=== PATIENT | female | born 1965 | race Caucasian/White ===

== ENCOUNTER 2019-04-10 11:16 | Observation (INO) | payer SELFPAY ==
--- NOTE | 2019-04-10 11:31 | ER Document Report ---
ED Medical Screen (RME) - General Chief Complaint: Urinary Problem Stated Complaint: URINARY PROBLEM Time Seen by Provider: 04/10/19 11:26 Mode of Arrival: Ambulatory Information source: Patient Notes: 53-year-old female presented to ED for complaint of left flank pain with urgency frequency and pain. Not any blood that she has seen. She states she does have body aches all over. She is a diabetic on the side and and metformin. She states last time she had a problem with her sugar she felt like she had body aches all over and her lactic acid was elevated. She states she does not smoke drink or use any drugs. She states she does not have a primary doctor. She states she was on health care in [place] but when she moved to [place] that she does not longer has it. She states she has has high blood pressure diabetes fibromyalgia osteoarthritis coronary artery disease thoracic aortic aneurysm and depression. Has a small abscess type area to the right lower abdomen from previous Lovenox shots. She states this started in March and is getting progressively worse. I have greeted and performed a rapid initial assessment of this patient. A comprehensive ED assessment and evaluation of the patient, analysis of test results and completion of medical decision making process will be conducted by an additional ED providers. - Related Data Allergies/Adverse Reactions: levofloxacin [From Levaquin] Allergy (Intermediate, Verified 04/10/19 11:22) cardiac arrythmia sumatriptan [From Imitrex] Allergy (Intermediate, Verified 04/10/19 11:22) Tachycardia amitriptyline Adverse Reaction (Severe, Verified 04/10/19 11:22) Depression Physical Exam - Vital signs Vitals: Temp Pulse Resp BP Pulse Ox 97.8 F 61 16 133/83 H 95 04/10/19 11:21 04/10/19 11:21 04/10/19 11:21 04/10/19 11:21 04/10/19 11:21 Course - Vital Signs Vital signs: Temp Pulse Resp BP Pulse Ox 97.8 F 61 16 133/83 H 95 04/10/19 11:21 04/10/19 11:21 04/10/19 11:21 04/10/19 11:21 04/10/19 11:21
[2019-04-10 12:17] LABS: ABSOLUTE EOSINOPHILS # (AUTO) 0.7 10^3/uL (0.0-0.6); ABSOLUTE LYMPHOCYTES (AUTO) 1.8 10^3/uL (0.5-4.7); ABSOLUTE MONOCYTES (AUTO) 0.3 10^3/uL (0.1-1.4); ABSOLUTE NEUT (AUTO) 4.5 10^3/uL (1.7-8.2); BASOPHILS % (AUTO) 0.4 % (0-2); EOSINOPHILS % (AUTO) 9.7 % (0-6); HEMATOCRIT 40.4 % (36.0-47.0); HEMOGLOBIN 13.3 g/dL (12.0-15.5); LYMPHOCYTES % (AUTO) 25.1 % (13-45); MEAN CORPUSCULAR HEMOGLOBIN 28.2 pg (27.0-33.4); MEAN CORPUSCULAR VOLUME 86 fl (80-97); MONOCYTES % (AUTO) 4.1 % (3-13); PLATELET COUNT 182 10^3/uL (150-450); RED BLOOD COUNT 4.72 10^6/uL (3.72-5.28); RED CELL DISTRIBUTION WIDTH 14.7 % (11.5-14.0); SEGMENTED NEUTROPHILS % (AUTO) 60.7 % (42-78); TOTAL CELLS COUNTED % (AUTO) 100 %; WHITE BLOOD COUNT 7.3 10^3/uL (4.0-10.5)
[2019-04-10 12:18] LABS: VENOUS BLOOD BASE EXCESS -0.4 mmol/L; VENOUS BLOOD HCO3 27.6 mmol/L (20-32); VENOUS BLOOD PCO2 60.4 mmHg (35-63); VENOUS BLOOD PH 7.28 (7.30-7.42)
[2019-04-10 12:20] LABS: APPEARANCE,URINE CLEAR; BILIRUBIN,URINE NEGATIVE (NEGATIVE); COLOR,URINE YELLOW; GLUCOSE, URINE >=500 mg/dL (NEGATIVE); KETONES,URINE NEGATIVE (NEGATIVE); PROTEIN,URINE NEGATIVE (NEGATIVE); URINE SPECIFIC GRAVITY 1.025; UROBILINOGEN,URINE NEGATIVE mg/dL (<2.0)
[2019-04-10 12:36] LABS: ALBUMIN 4.1 g/dL (3.5-5.0); ALKALINE PHOSPHATASE 76 U/L (38-126); ANION GAP 12 (5-19); ASPARTATE AMINO TRANSFERASE 27 U/L (14-36); BILIRUBIN,DIRECT 0.1 mg/dL (0.0-0.4); BILIRUBIN,TOTAL 0.5 mg/dL (0.2-1.3); BLOOD UREA NITROGEN 22 mg/dL (7-20); CALCIUM 9.2 mg/dL (8.4-10.2); CARBON DIOXIDE 27 mmol/L (22-30); CHLORIDE 96 mmol/L (98-107)
[2019-04-10] MEDS ORDERED: NORMAL SALINE IV ONE (12:45)
--- NOTE | 2019-04-10 12:47 | ER Document Report ---
ED General - General Chief Complaint: Flank Pain Stated Complaint: URINARY PROBLEM Time Seen by Provider: 04/10/19 11:26 Mode of Arrival: Ambulatory TRAVEL OUTSIDE OF THE [place] IN LAST 30 DAYS: No - HPI Notes: 53-year-old female to the emergency department with complaints of bilateral flank pain with associated nausea, dysuria, urinary frequency that is been getting worse for the past week. She states that her left flank pain is worse than her right. She denies any hematuria. She denies any history of kidney stones. She does report that she has been nauseated but not vomiting. She denies any diarrhea. She states that she has had chills but no fevers. She states that she takes metformin and glipizide for her diabetes and has had a lot of difficulty controlling her sugar. She states that at one point she was on 2000 mg of metformin daily but she was taken off of that dose and reduced because she had a finding of lactic acidosis. She states that she feels overall poorly. She denies any chest pain or shortness of breath. She recently moved from [place] and does not have established primary care here. - Related Data Allergies/Adverse Reactions: levofloxacin [From Levaquin] Allergy (Intermediate, Verified 04/10/19 11:22) cardiac arrythmia sumatriptan [From Imitrex] Allergy (Intermediate, Verified 04/10/19 11:22) Tachycardia amitriptyline Adverse Reaction (Severe, Verified 04/10/19 11:22) Depression Home Medications: tramadol, cymbalta, metformin, furosemide, metoprolol succ, tr azadone, omeprazole, glipizide, Past Medical History - General Information source: Patient - Social History Smoking Status: Never Smoker Chew tobacco use (# tins/day): No Frequency of alcohol use: None Drug Abuse: None Family History: DM, Hypertension Patient has suicidal ideation: No Patient has homicidal ideation: No Endocrine Medical History: Reports: Hx Diabetes Mellitus Type 2 Past Surgical History: Reports: Hx Appendectomy, Hx Bowel Surgery - sigmond colon removal, Hx Cholecystectomy, Hx Hysterectomy, Hx Orthopedic Surgery Review of Systems - Review of Systems Constitutional: Chills, Malaise. denies: Fever EENT: No symptoms reported Cardiovascular: denies: Chest pain, Palpitations, Heart racing, Orthopnea, Dyspnea, Syncope, Lightheaded Respiratory: denies: Cough, Short of breath Gastrointestinal: Abdominal pain, Nausea. denies: Diarrhea, Vomiting Genitourinary: Dysuria, Frequency, Flank pain, Urgency. denies: Hematuria, Incontinence Female Genitourinary: No symptoms reported Musculoskeletal: No symptoms reported Skin: No symptoms reported Hematologic/Lymphatic: No symptoms reported Neurological/Psychological: No symptoms reported Physical Exam - Vital signs Vitals: Temp Pulse Resp BP Pulse Ox 97.8 F 61 16 133/83 H 95 04/10/19 11:21 04/10/19 11:21 04/10/19 11:21 04/10/19 11:21 04/10/19 11:21 Interpretation: Hypertensive - General General appearance: Appears well, Alert In distress: None - HEENT Head: Normocephalic, Atraumatic Eyes: Normal Pupils: PERRL - Respiratory Respiratory status: No respiratory distress Chest status: Nontender Breath sounds: Normal Chest palpation: Normal - Cardiovascular Rhythm: Regular Heart sounds: Normal auscultation Murmur: No - Abdominal Inspection: Normal, Obese Distension: No distension Bowel sounds: Normal Tenderness: Tender - There is tenderness to palpation to the epigastrium, right upper quadrant and bilateral flank. Negative McBurney's point, negative Sierra sign. patient is not guarding and has no peritoneal signs. Organomegaly: No organomegaly - Back Back: Normal, Nontender - Extremities General upper extremity: Normal inspection, Nontender, Normal color, Normal ROM, Normal temperature General lower extremity: Normal inspection, Nontender, Normal color, Normal ROM, Normal temperature, Normal weight bearing. No: Iman's sign - Neurological Neuro grossly intact: Yes Cognition: Normal Orientation: AAOx4 [place] Coma Scale Eye Opening: Spontaneous Rangel Coma Scale Verbal: Oriented [place]angel Coma Scale Motor: Obeys Commands [place] Coma Scale Total: 15 Speech: Normal Motor strength normal: LUE, RUE, LLE, RLE Sensory: Normal - Psychological Associated symptoms: Normal affect, Normal mood - Skin Skin Temperature: Warm Skin Moisture: Dry Skin Color: Normal Course - Re-evaluation Re-evalutation: Noted hyperglycemia without evidence for diabetic ketoacidosis however there is an acidosis on VBG. Noted lactic acidosis with lactic acid of 3.8. Patient bolus of fluid of 30cc/kg and will repeat lactic acid. We will also give insulin for her hyperglycemia. Repeat sugar was 200s. Repeat lactic acid despite adequate fluid bolus was still 4. Discussed patient with Dr. Jolly, ER attending. We agreed that patient should be admitted to the hospital. Suspect that the lactic acidosis is from her metformin. Spoke with Dr. Castillo hospitalist taking call for admission. He asked me to call his colleague Odalys Mata, [employer] for admission. Spoke with Odalys and she agrees with plan for admission. She will come down see the patient. We will place patient on the medical floor. Impression: Lactic acidosis likely secondary to drugs like her metformin. Patient is still taking 1000 mg of metformin daily despite a prior episode of lactic acidosis on metformin. She is hyperglycemic and that is been addressed s georgette arrival she agrees with plan for admission. - Vital Signs Vital signs: Temp Pulse Resp BP Pulse Ox 98.4 F 60 14 151/73 H 98 04/10/19 18:04 04/10/19 18:32 04/10/19 18:32 04/10/19 18:04 04/10/19 18:32 - Laboratory Result Diagrams: 04/10/19 11:53 04/10/19 11:53 Laboratory results interpreted by me: 04/10/19 04/10/19 04/10/19 11:40 11:53 11:53 RDW 14.7 H Eos % (Auto) 9.7 H Absolute Eos (auto) 0.7 H VBG pH Sodium Chloride BUN Glucose POC Glucose Lactic Acid 3.8 H Creatine Kinase Serum HCG, Qual Urine Glucose (UA) >=500 H Salicylates Acetaminophen 04/10/19 04/10/19 04/10/19 11:53 11:53 11:53 RDW Eos % (Auto) Absolute Eos (auto) VBG pH 7.28 L Sodium 134.8 L Chloride 96 L BUN 22 H Glucose 459 H* POC Glucose Lactic Acid Creatine Kinase Serum HCG, Qual POSITIVE H Urine Glucose (UA) Salicylates Acetaminophen 04/10/19 04/10/19 04/10/19 11:53 11:53 11:53 RDW Eos % (Auto) Absolute Eos (auto) VBG pH Sodium Chloride BUN Glucose POC Glucose Lactic Acid Creatine Kinase 20 L Serum HCG, Qual Urine Glucose (UA) Salicylates < 1.0 L Acetaminophen < 10 L 04/10/19 04/10/19 04/10/19 12:33 12:34 13:57 RDW Eos % (Auto) Absolute Eos (auto) VBG pH Sodium Chloride BUN Glucose POC Glucose 436 H* 399 H Lactic Acid 4.0 H Creatine Kinase Serum HCG, Qual Urine Glucose (UA) Salicylates Acetaminophen 04/10/19 15:15 RDW Eos % (Auto) Absolute Eos (auto) VBG pH Sodium Chloride BUN Glucose POC Glucose 287 H Lactic Acid Creatine Kinase Serum HCG, Qual Urine Glucose (UA) Salicylates Acetaminophen - Diagnostic Test Radiology reviewed: Image reviewed, Reports reviewed Discharge - Discharge Clinical Impression: Lactic acidosis Condition: Stable Disposition: ADMITTED INPATIENT Admitting Provider: Dr. Hernán Castillo Unit Admitted: Medical Floor
[2019-04-10 12:51] LABS: GLUCOSE 459 mg/dL (75-110)
[2019-04-10] MEDS ORDERED: INSULIN REG, HUMAN 100 UNIT/ML 3 ML VIAL (PYX) IV ONE ×2 (13:04→14:03)
[2019-04-10] MEDS ORDERED: ONDANSETRON HCL INJ/PF 4 MG/2 ML SDV IV ONE (13:14)
--- NOTE | 2019-04-10 13:55 | RADIOLOGY REPORT (SQ) ---
EXAM DESCRIPTION: CT ABD/PELVIS NO ORAL OR IV COMPLETED DATE/TIME: 04/10/2019 1:41 pm REASON FOR STUDY: flank pain, urinary frequency COMPARISON: None. TECHNIQUE: CT scan of the abdomen and pelvis performed without intravenous or oral contrast. Images reviewed with lung, soft tissue, and bone windows. Reconstructed coronal and sagittal MPR images revi ewed. All images stored on PACS. All CT scanners at this facility use dose modulation, iterative reconstruction, and/or weight based d osing when appropriate to reduce radiation dose to as low as reasonably achievable (ALARA). [facility]: Dose Right [facility]: CareDose [facility]: Dose Right [facility]: Teradose 4D [facility]: Hiddenbed RADIATION DOSE: CT Rad equipment meets quality standard of care and radiation dose reduction techniq ues were employed. CTDIvol: 8.2 mGy. DLP: 513 mGy-cm.mGy. LIMITATIONS: None. FINDINGS: LOWER CHEST: No significant findings. No nodules or infiltrates. NON-CONTRASTED LIVER, SPLEEN, ADRENALS: Evaluation limited by lack of IV contrast. No identified sign ificant masses. PANCREAS: No masses. No peripancreatic inflammatory changes. GALLBLADDER: Surgically absent. RIGHT KIDNEY AND URETER: No suspicious masses. Assessment limited by lack of IV contrast. No signif icant calcifications. No hydronephrosis or hydroureter. LEFT KIDNEY AND URETER: No suspicious masses. Assessment limited by lack of IV contrast. No signifi cant calcifications. No hydronephrosis or hydroureter. AORTA AND RETROPERITONEUM: No aneurysm. No retroperitoneal masses or adenopathy. BOWEL AND PERITONEAL CAVITY: No obvious masses or inflammatory changes. No free fluid. Evidence of p rior sigmoid colon resection. Moderate burden of stool in the colon. APPENDIX: Surgically absent. PELVIS, BLADDER, AND ABDOMINAL WALL:No abnormal masses. Status posthysterectomy. No free fluid. Rodrigue dder normal. BONES: No significant findings. OTHER: No other significant finding. IMPRESSION: 1. No acute noncontrast CT findings of the abdomen or pelvis to explain abdominal pain, flank pain, or urinary frequency. No evidence of urinary tract calculus or hydronephrosis. 2. Multiple postoperative findings as above. COMMENT: Quality ID # [id number]: Final reports with documentation of one or more dose reduction techniques (e.g., Automated exposure control, adjustment of the mA and/or kV according to patient size, use of iterative reconstruction technique) TECHNICAL DOCUMENTATION: JOB ID: [id number] [employer]- All Rights Reserved Reading location - IP/workstation name: [email or web address]
[2019-04-10 16:37] LABS: URINE AMPHETAMINES SCREEN NEGATIVE; URINE BARBITURATES SCREEN NEGATIVE; URINE BENZODIAZEPINES SCREEN NEGATIVE; URINE COCAINE SCREEN NEGATIVE; URINE MARIJUANA (THC) SCREEN NEGATIVE; URINE METHADONE SCREEN NEGATIVE; URINE PHENCYCLIDINE SCREEN NEGATIVE
[2019-04-10 17:16] LABS: PARTIAL THROMBOPLASTIN TIME 22.8 SEC (23.5-35.8); PROTHROMBIN TIME 13.2 SEC (11.4-15.4)
[2019-04-10 17:17] LABS: ARTERIAL BLOOD BASE EXCESS 1.7 mmol/L; ARTERIAL BLOOD H2CO3 1.39 mmol/L (1.05-1.35); ARTERIAL BLOOD HCO3 27.1 mmol/L (20-24); ARTERIAL BLOOD O2 SATURATION 95.7 % (94-98); ARTERIAL BLOOD PCO2 46.3 mmHg (35-45); ARTERIAL BLOOD PH 7.39 (7.35-7.45); ARTERIAL BLOOD PO2 80.5 mmHg (80-100); ARTERIAL BLOOD TOTAL CO2 28.6 mmol/L (21-25)
[2019-04-10 17:18] LABS: ARTERIAL BLOOD FIO2 ROOM AIR
[2019-04-10] MEDS ORDERED: MAG HYDROX/AL HYDROX/SIMETH SUSP 30 ML UDCUP PO PRN (18:28)
[2019-04-10] MEDS ORDERED: ACETAMINOPHEN 325 MG TABLET PO PRN (18:28)
[2019-04-10] MEDS ORDERED: ALBUTEROL SULFATE 0.083% NEB 2.5 MG/3 ML AMPUL NEB PRN (18:28)
[2019-04-10] MEDS ORDERED: ONDANSETRON HCL INJ/PF 4 MG/2 ML SDV IV PRN (18:28)
[2019-04-10] MEDS ORDERED: NORMAL SALINE 1000 ML 1,000 ML IV PRN (18:28)
[2019-04-10] MEDS ORDERED: PROMETHAZINE HCL INJ 25 MG/1 ML VIAL IV PRN (18:28)
[2019-04-10] MEDS ORDERED: ZOLPIDEM TARTRATE 5 MG TABLET PO PRN (18:28)
[2019-04-10] MEDS ORDERED: DEXTROSE 50%-WATER SYRINGE 25 GM/50 ML DOSE IV PRN (18:30)
[2019-04-10] MEDS ORDERED: DEXTROSE 50%-WATER SYRINGE 12.5 GM/25 ML DOSE IV PRN (18:30)
[2019-04-10] MEDS ORDERED: DEXTROSE 40% GEL 15 GM TUBE X 2 PO PRN (18:30)
[2019-04-10] MEDS ORDERED: GLUCAGON,HUMAN RECOMB 1 MG INJ IM PRN (18:30)
[2019-04-10] MEDS ORDERED: DEXTROSE 40% GEL 15 GM TUBE PO PRN (18:30)
[2019-04-10 18:52] LABS: CREATINE KINASE 20 U/L (30-135)
[2019-04-10] MEDS ORDERED: HYDRALAZINE HCL INJ/PF 20 MG/1 ML SDV IV PRN (18:52)
--- NOTE | 2019-04-10 19:06 | PDOC H&P ---
History of Present Illness Admission Date/PCP: 04/10/19 16:32 Patient complains of: urinary frequency History of Present Illness: ELDER BRYAN is a 53 year old female who recently moved from [place], without local PCP, and past medical history significant for hypertension, CHF, cardiomyopathy, remote myocarditis, ME with clean cardiac catheterization 3 years ago, hypertension, DM 2, obesity, and depression who presented to the emergency department today with a complaint of generalized fatigue, malaise, urinary frequency and dysuria x2 to 3 days. Evaluation in the emergency department revealed stable vital signs, unremarkable CBC, normal coags, chemistry demonstrating hyperglycemia (459), elevated lactic acid (3.8) unresponsive to 2.5 L NS (follow up 4.0), negative urinalysis and CT ABD/Pelvis that demonstrates multiple post-surgical changes but no acute findings. The patient is noted to be on Metformin 500 mg BID; and interestingly, reports that she had an admission in January and February of this year (to out of state hospital) both with elevated lactic acids that were presumably related to her metformin and no infectious process at that time. The patient admits to being frustrated that the source of her lactic acidosis was not identified but did seem to correct over the course of her admissions with gentle IV fluids until she was discharged. The Hospitalist services is consulted for admission and management of the above stated complaints and findings. Past Medical History Cardiac Medical History: Reports: Congestive Heart Failure, Myocardial Infarction, Hyperlipidema, Hypertension Pulmonary Medical History: Reports: Chronic Obstructive Pulmonary Disease (COPD) EENT Medical History: Reports: None Neurological Medical History: Denies: Ischemic CVA Endocrine Medical History: Reports: Diabetes Mellitus Type 2, Obesity Denies: Hypothyroidism Renal/ Medical History: Reports: None Malignancy Medical History: Reports: None GI Medical History: Reports: None Musculoskeltal Medical History: Reports: None Skin Medical History: Reports: None Psychiatric Medical History: Reports: Depression Traumatic Medical History: Reports: None Hematology: Reports: None Infectious Medical History: Reports: None Past Surgical History Past Surgical History: Reports: Appendectomy, Cholecystectomy, Hysterectomy - w/ complicated oophrectomy, Orthopedic Surgery Social History Information Source: Patient Lives with: Alone Smoking Status: Never Smoker Electronic Cigarette use?: No Frequency of Alcohol Use: None Hx Recreational Drug Use: No Drugs: None Hx Prescription Drug Abuse: No Family History Family History: DM, Hypertension Parental Family History Reviewed: Yes Children Family History Reviewed: Yes Sibling(s) Family History Reviewed.: Yes Medication/Allergy Allergies/Adverse Reactions: levofloxacin [From Levaquin] Allergy (Intermediate, Verified 04/10/19 11:22) cardiac arrythmia sumatriptan [From Imitrex] Allergy (Intermediate, Verified 04/10/19 11:22) Tachycardia amitriptyline Adverse Reaction (Severe, Verified 04/10/19 11:22) Depression Review of Systems Constitutional: PRESENT: fatigue, other - Malaise. ABSENT: chills, fever(s), headache(s), weight gain, weight loss Eyes: ABSENT: visual disturbances Ears: ABSENT: hearing changes Cardiovascular: ABSENT: chest pain, dyspnea on exertion, edema, orthropnea, palpitations Respiratory: ABSENT: cough, hemoptysis Gastrointestinal: PRESENT: abdominal pain, nausea. ABSENT: constipation, diarrhea, hematemesis, hematochezia, vomiting Genitourinary: PRESENT: dysuria. ABSENT: hematuria Musculoskeletal: ABSENT: joint swelling Integumentary: ABSENT: rash, wounds Neurological: ABSENT: abnormal gait, abnormal speech, confusion, dizziness, focal weakness, syncope Psychiatric: ABSENT: anxiety, depression, homidical ideation, suicidal ideation Endocrine: PRESENT: polydipsia, polyuria. ABSENT: cold intolerance, heat intolerance Hematologic/Lymphatic: PRESENT: lymphadenopathy - Intermittent; most notably to her right axilla. ABSENT: easy bleeding, easy bruising Physical Exam Vital Signs: Temp Pulse Resp BP Pulse Ox 98.4 F 55 L 15 151/73 H 97 04/10/19 18:04 04/10/19 18:04 04/10/19 18:04 04/10/19 18:04 04/10/19 18:04 Intake & Output 04/09/19 04/10/19 04/11/19 06:59 06:59 06:59 Intake Total 2580 Balance 2580 Weight 86.2 kg General appearance: PRESENT: no acute distress, cooperative, obese, well- developed, well-nourished Head exam: PRESENT: atraumatic, normocephalic Eye exam: PRESENT: conjunctiva pink, EOMI, PERRLA. ABSENT: scleral icterus Ear exam: PRESENT: normal external ear exam Mouth exam: PRESENT: moist, tongue midline Neck exam: PRESENT: full ROM Respiratory exam: PRESENT: clear to auscultation shauna, symmetrical, unlabored. ABSENT: rales, rhonchi, wheezes Cardiovascular exam: PRESENT: RRR, +S1, +S2. ABSENT: diastolic murmur, rubs, systolic murmur Pulses: PRESENT: normal dorsalis pedis pul Vascular exam: PRESENT: normal capillary refill GI/Abdominal exam: PRESENT: normal bowel sounds, soft. ABSENT: distended, guarding, mass, organolmegaly, rebound, tenderness Rectal exam: PRESENT: deferred Extremities exam: PRESENT: full ROM. ABSENT: calf tenderness, clubbing, pedal edema Neurological exam: PRESENT: alert, awake, oriented to person, oriented to place, oriented to time, oriented to situation, CN II-XII grossly intact. ABSENT: motor sensory deficit Psychiatric exam: PRESENT: appropriate affect, normal mood. ABSENT: homicidal ideation, suicidal ideation Skin exam: PRESENT: dry, intact, warm. ABSENT: cyanosis, rash Results Laboratory Results: 04/10/19 11:53 04/10/19 11:53 04/10/19 04/10/19 04/10/19 11:40 11:53 11:53 WBC 7.3 RBC 4.72 Hgb 13.3 Hct 40.4 MCV 86 MCH 28.2 MCHC 33.0 RDW 14.7 H Plt Count 182 Seg Neutrophils % 60.7 Carbonic Acid HCO3/H2CO3 Ratio ABG pH ABG pCO2 ABG pO2 ABG HCO3 ABG O2 Saturation ABG Base Excess VBG pH VBG pCO2 VBG HCO3 VBG Base Excess FiO2 Sodium Potassium Chloride Carbon Dioxide Anion Gap BUN Creatinine Est GFR ( Amer) Glucose Lactic Acid 3.8 H Calcium Total Bilirubin AST Alkaline Phosphatase Total Protein Albumin Serum HCG, Qual Urine Color YELLOW Urine Appearance CLEAR Urine pH 5.0 Ur Specific [place] 1.025 Urine Protein NEGATIVE Urine Glucose (UA) >=500 H Urine Ketones NEGATIVE Urine Blood NEGATIVE Urine RBC (Auto) 1 04/10/19 04/10/19 04/10/19 11:53 11:53 11:53 WBC RBC Hgb Hct MCV MCH MCHC RDW Plt Count Seg Neutrophils % Carbonic Acid HCO3/H2CO3 Ratio ABG pH ABG pCO2 ABG pO2 ABG HCO3 ABG O2 Saturation ABG Base Excess VBG pH 7.28 L VBG pCO2 60.4 VBG HCO3 27.6 VBG Base Excess -0.4 FiO2 Sodium 134.8 L Potassium 5.0 Chloride 96 L Carbon Dioxide 27 Anion Gap 12 BUN 22 H Creatinine 0.92 Est GFR ( Amer) > 60 Glucose 459 H* Lactic Acid Calcium 9.2 Total Bilirubin 0.5 AST 27 Alkaline Phosphatase 76 Total Protein 7.0 Albumin 4.1 Serum HCG, Qual POSITIVE H Urine Color Urine Appearance Urine pH Ur Specific [place] Urine Protein Urine Glucose (UA) Urine Ketones Urine Blood Urine RBC (Auto) 04/10/19 04/10/19 04/10/19 11:53 12:33 17:10 WBC RBC Hgb Hct MCV MCH MCHC RDW Plt Count Seg Neutrophils % Carbonic Acid 1.39 H HCO3/H2CO3 Ratio 19:1 ABG pH 7.39 ABG pCO2 46.3 H ABG pO2 80.5 ABG HCO3 27.1 H ABG O2 Saturation 95.7 ABG Base Excess 1.7 VBG pH VBG pCO2 VBG HCO3 VBG Base Excess FiO2 ROOM AIR Sodium Potassium Chloride Carbon Dioxide Anion Gap BUN Creatinine Est GFR ( Amer) Glucose Lactic Acid 4.0 H Calcium Total Bilirubin AST Alkaline Phosphatase Total Protein Albumin Serum HCG, Qual Cancelled Urine Color Urine Appearance Urine pH Ur Specific [place] Urine Protein Urine Glucose (UA) Urine Ketones Urine Blood Urine RBC (Auto) Impressions: Abdomen/Pelvis CT 04/10/19 13:14 IMPRESSION: 1. No acute noncontrast CT findings of the abdomen or pelvis to explain abdominal pain, flank pain, or urinary frequency. No evidence of urinary tract calculus or hydronephrosis. 2. Multiple postoperative findings as above. Assessment and Plan - Diagnosis (1) Lactic acidosis Is this a current diagnosis for this admission?: Yes Plan: Patient presented to the emergency department with generalized abdominal pain, dysuria, and urinary frequency. Initial laboratory evaluation revealed hyperglycemia which is the likely source of her urinary frequency. CT ABD/Pelvis wo contrast was negative for acute findings; does show moderate burden of stool in the colon which may be the source of her abdominal discomfort. Fortunately, the laboratory evaluation also demonstrated an elevated lactic acid of 3.8; she was provided 2.5 L normal saline and follow-up chemistry remained elevated at 4.0. The patient does confirm that she has had multiple admissions to outside hospitals for elevated lactic acid without sepsis. She has remained on metformin for management of her diabetes throughout. She cannot recall her providers ever noting that this could have been potentially related to her metformin use and she claims that she has never been instructed to discontinue use. She also reports that she has not taken any additional dosing either intentionally for management of her hyperglycemia, or by accident over the last few days. She reports that she has been on metformin for approximately 15 years. Interestingly, her serum qualitative hCG is positive; follow-up confirmation bill ting confirms positive result. She is noted to have a hysterectomy and oophorectomy, though patient reports that her nephrectomy was complicated with retained products and multiple follow-up surgeries to attempt to remove ovarian tissue that developed into hemorrhagic cysts. She also reports intermittent lymphadenopathy, most frequently to her right axilla, but noted also to her cervical chain and inguinal spaces. She reports that when swollen, her lymph nodes are tender but remain mobile and she has not noted a pattern or associated illness during these episodes. Breast exam was negative for clearly identified nodules. Patient denies recent/current mammogram. Lactic acid decreased to 2.6 LDH pending Quantitative HCG pending UDS, serum EtOH, ASA, and Acetaminophen are negative. WBCs nml, renal function nml, Anion gap 12, Bicarb 27 ABG 7.39/46.3/27.1/28.6 Holding metformin. Continue gentle IVF Follow up lab eval. Will discuss w/ Heme/Onc as I'm concerned that her persistent lactic acidosis, (+) Hcg, and intermittent lymphedema could indicate malignant process. (2) Diabetes Qualifiers: Diabetes mellitus type: type 2 Diabetes mellitus mcfp insulin use: without mcfp use Diabetes mellitus complication status: with hyperglycemia Qualified Code(s): E11.65 - Type 2 diabetes mellitus with hyperglycemia Is this a current diagnosis for this admission?: Yes Plan: The patient's oral diabetic medications are placed on hold. Accu-Cheks before meals and at bedtime with Humalog for sliding scale coverage. Hypoglycemia protocol. We will check A1c with morning lab work. (3) Hypertension Is this a current diagnosis for this admission?: Yes Plan: We will continue home dose antihypertensives once reconciled. IV hydralazine as needed for blood pressure control. (4) CHF (congestive heart failure) Qualifiers: Heart failure type: systolic Heart failure chronicity: chronic Qualified Code(s): I50.22 - Chronic systolic (congestive) heart failure Is this a current diagnosis for this admission?: Yes Plan: The patient reports that her last echocardiogram revealed LVEF of 30%. Patient reports last cardiac testing was greater than 3 years ago. No recent weight gain, pedal edema, orthopnea. We will continue home dose medication regiment once reconciled. Ensure patient has referral to cardiology for outpatient follow-up. Monitor daily weights and I&O's. - Time Time Spent with patient: 35 or more minutes Medications reviewed and adjusted accordingly: Yes Anticipated discharge: Home Within: within 48 hours
[2019-04-10] MEDS: INSULIN LISPRO 100 UNIT/ML 3 ML VIAL SUBCUT SCH (22:24)
[2019-04-10] MEDS: METOPROLOL SUCCINATE 50 MG TAB.SR.24H PO SCH (22:24)
[2019-04-10] MEDS: TRAMADOL HCL 50 MG TABLET PO PRN (22:27)
[2019-04-10] MEDS ORDERED: PANTOPRAZOLE SODIUM 40 MG TABLET.DR PO ONE (23:45)
--- NOTE | 2019-04-10 23:56 | EKG REPORT ---
SEVERITY:- NORMAL ECG - SINUS RHYTHM : Confirmed by: Stella Coley 10-Apr-2019 23:56:04
[2019-04-11 05:28] LABS: ABSOLUTE EOSINOPHILS # (AUTO) 0.6 10^3/uL (0.0-0.6); ABSOLUTE MONOCYTES (AUTO) 0.4 10^3/uL (0.1-1.4); ABSOLUTE NEUT (AUTO) 2.2 10^3/uL (1.7-8.2); BASOPHILS % (AUTO) 0.6 % (0-2); HEMATOCRIT 35.6 % (36.0-47.0); LYMPHOCYTES % (AUTO) 48.1 % (13-45); MEAN CORPUSCULAR HEMOGLOBIN 28.3 pg (27.0-33.4); MEAN CORPUSCULAR HGB CONC 33.6 g/dL (32.0-36.0); MEAN CORPUSCULAR VOLUME 84 fl (80-97); MONOCYTES % (AUTO) 5.7 % (3-13); PLATELET COUNT 166 10^3/uL (150-450); RED BLOOD COUNT 4.23 10^6/uL (3.72-5.28); RED CELL DISTRIBUTION WIDTH 14.8 % (11.5-14.0); SEGMENTED NEUTROPHILS % (AUTO) 35.6 % (42-78); TOTAL CELLS COUNTED % (AUTO) 100 %; WHITE BLOOD COUNT 6.2 10^3/uL (4.0-10.5)
[2019-04-11 05:53] LABS: ALBUMIN 3.3 g/dL (3.5-5.0); ALKALINE PHOSPHATASE 66 U/L (38-126); ANION GAP 6 (5-19); ASPARTATE AMINO TRANSFERASE 21 U/L (14-36); BILIRUBIN,DIRECT 0.1 mg/dL (0.0-0.4); BILIRUBIN,TOTAL 0.4 mg/dL (0.2-1.3); BLOOD UREA NITROGEN 18 mg/dL (7-20); CALCIUM 9.1 mg/dL (8.4-10.2); CARBON DIOXIDE 26 mmol/L (22-30); CHLORIDE 104 mmol/L (98-107); CHOLESTEROL 238.82 mg/dL (0-200); GLUCOSE 190 mg/dL (75-110); POTASSIUM 4.6 mmol/L (3.6-5.0); TOTAL PROTEIN 5.8 g/dL (6.3-8.2)
[2019-04-11 06:00] LABS: TRIGLYCERIDES 616 mg/dL (<150)
[2019-04-11] MEDS ORDERED: PANTOPRAZOLE SODIUM 40 MG TABLET.DR PO SCH ×2 (06:00→22:00)
[2019-04-11 06:03] LABS: DIRECT LDL 123 mg/dL (<100)
[2019-04-11] MEDS: INSULIN LISPRO 100 UNIT/ML 3 ML VIAL SUBCUT SCH ×4 (07:43→22:48)
[2019-04-11] MEDS: FENOFIBRATE NANOCRYSTALLIZED 145 MG TABLET PO SCH (09:53)
[2019-04-11] MEDS: METOPROLOL SUCCINATE 50 MG TAB.SR.24H PO SCH (09:53)
[2019-04-11] MEDS: DOCUSATE SODIUM 100 MG CAPSULE PO SCH (09:53)
[2019-04-11] MEDS: TRAMADOL HCL 50 MG TABLET PO PRN ×2 (10:04→23:03)
--- NOTE | 2019-04-11 18:29 | PDOC PROGRESS REPORT ---
Subjective Progress Note for:: 04/11/19 Subjective:: ELDER BRYAN is a 53 year old female who recently moved from [place], without local PCP, and past medical history significant for hypertension, CHF, cardiomyopathy, remote myocarditis, [place] with clean cardiac catheterization 3 years ago, hypertension, DM 2, obesity, and depression who was admitted 04/10/2019 for non-anion gap acidosis/lactic acidosis, likely secondary to metformin use. The patient was seen on afternoon rounds. She was found resting in bed comfortably on room air. She reports that she is feeling well today. She denies fever, chills, chest pain, palpitations, dyspnea, orthopnea, abdominal pain, nausea vomiting and diarrhea. She reports good appetite. No new concerns today. No concerns per nursing. Reason For Visit: LACTIC ACIDOSIS,HYPERGLYCEMIA Physical Exam Vital Signs: Temp Pulse Resp BP Pulse Ox 99.4 F 56 L 20 141/68 H 98 04/11/19 12:02 04/11/19 12:02 04/11/19 12:02 04/11/19 12:02 04/11/19 12:02 Intake & Output 04/10/19 04/11/19 04/12/19 06:59 06:59 06:59 Intake Total 2900 236 Balance 2900 236 Weight 87.8 kg General appearance: PRESENT: no acute distress, cooperative, obese, well- developed, well-nourished Head exam: PRESENT: atraumatic, normocephalic Eye exam: PRESENT: conjunctiva pink, EOMI, PERRLA. ABSENT: scleral icterus Ear exam: PRESENT: normal external ear exam Mouth exam: PRESENT: moist, tongue midline Neck exam: PRESENT: full ROM. ABSENT: lymphadenopathy Respiratory exam: PRESENT: clear to auscultation shauna, symmetrical, unlabored. ABSENT: rales, rhonchi, wheezes Cardiovascular exam: PRESENT: RRR, +S1, +S2. ABSENT: diastolic murmur, rubs, systolic murmur Pulses: PRESENT: normal dorsalis pedis pul Vascular exam: PRESENT: normal capillary refill GI/Abdominal exam: PRESENT: normal bowel sounds, soft. ABSENT: distended, guarding, mass, organolmegaly, rebound, tenderness Rectal exam: PRESENT: deferred Extremities exam: PRESENT: full ROM. ABSENT: calf tenderness, clubbing, pedal edema Musculoskeletal exam: PRESENT: ambulatory Neurological exam: PRESENT: alert, awake, oriented to person, oriented to place, oriented to time, oriented to situation, CN II-XII grossly intact. ABSENT: motor sensory deficit Psychiatric exam: PRESENT: appropriate affect, normal mood. ABSENT: homicidal ideation, suicidal ideation Skin exam: PRESENT: dry, intact, warm. ABSENT: cyanosis, rash Results Laboratory Results: 04/11/19 05:16 04/11/19 05:16 04/10/19 04/11/19 04/11/19 18:15 05:16 05:16 WBC 6.2 RBC 4.23 Hgb 12.0 Hct 35.6 L MCV 84 MCH 28.3 MCHC 33.6 RDW 14.8 H Plt Count 166 Seg Neutrophils % 35.6 L Sodium Potassium Chloride Carbon Dioxide Anion Gap BUN Creatinine Est GFR ( Amer) Glucose Lactic Acid 2.6 H 2.2 H Calcium Total Bilirubin AST Alkaline Phosphatase Total Protein Albumin Triglycerides Cholesterol LDL Cholesterol Direct HDL Cholesterol TSH 04/11/19 04/11/19 05:16 05:16 WBC RBC Hgb Hct MCV MCH MCHC RDW Plt Count Seg Neutrophils % Sodium 136.4 L Potassium 4.6 Chloride 104 Carbon Dioxide 26 Anion Gap 6 BUN 18 Creatinine 0.80 Est GFR ( Amer) > 60 Glucose 190 H Lactic Acid Calcium 9.1 Total Bilirubin 0.4 AST 21 Alkaline Phosphatase 66 Total Protein 5.8 L Albumin 3.3 L Triglycerides 616 H Cholesterol 238.82 H LDL Cholesterol Direct 123 H HDL Cholesterol 36 L TSH 1.53 04/10/19 11:40 Clean Catch Midstream Urine Culture - Final Mixed Urogenital Beckie 04/10/19 11:53 Creatine Kinase 20 L Impressions: Abdomen/Pelvis CT 04/10/19 13:14 IMPRESSION: 1. No acute noncontrast CT findings of the abdomen or pelvis to explain abdominal pain, flank pain, or urinary frequency. No evidence of uri nary tract calculus or hydronephrosis. 2. Multiple postoperative findings as above. Assessment and Plan - Diagnosis (1) Lactic acidosis Is this a current diagnosis for this admission?: Yes Plan: Improved; 3.8-> 4.0-> 2.6-> 2.2 Initial laboratory evaluation revealed hyperglycemia which is the likely source of her urinary frequency. CT ABD/Pelvis wo contrast was negative for acute findings; does show moderate burden of stool in the colon which may be the source of her abdominal disco mfort. LDH nml UDS and Toxicology negative ABG 7.39/46.3/27.1/28.6 The patient does confirm that she has had multiple admissions to outside hospitals for elevated lactic acid without sepsis. She has remained on metformin for management of her diabetes throughout. She cannot recall her providers ever noting that this could have been potentially related to her metformin use and she claims that she has never been instructed to discontinue use. She also reports that she has not taken any additional dosing either intentionally for management of her hyperglycemia, or by accident over the last few days. She reports that she has been on metformin for approximately 15 years. Have requested records. Discussed (+) Hcg with Hem/Onc and OBGYN; not clinically significant at this time. No red flags for malignant process. Continue holding metformin. Recommend permanent discontinuation. Follow up lactic acid in morning. Anticipate patient will be ready for discharge at that time. (2) Diabetes Qualifiers: Diabetes mellitus type: type 2 Diabetes mellitus intermediate teacher insulin use: without intermediate teacher use Diabetes mellitus complication status: with hyperglycemia Qualified Code(s): E11.65 - Type 2 diabetes mellitus with hyperglycemia Is this a current diagnosis for this admission?: Yes Plan: Hgb A1C 10.9% The patient's oral diabetic medications are placed on hold. Start Lantus 4 units nightly. Accu-Cheks before meals and at bedtime with Humalog for sliding scale coverage. Hypoglycemia protocol. court magistrate and intelligence research specialist consulted. (3) Hypertension Is this a current diagnosis for this admission?: Yes Plan: Continue home dose antihypertensive regimen IV hydralazine as needed for blood pressure control. (4) CHF (congestive heart failure) Qualifiers: Heart failure type: systolic Heart failure chronicity: chronic Qualified Code(s): I50.22 - Chronic systolic (congestive) heart failure Is this a current diagnosis for this admission?: Yes Plan: The patient reports that her last echocardiogram revealed LVEF of 30%. Patient reports last cardiac testing was greater than 3 years ago. No recent weight gain, pedal edema, orthopnea. Continue home medication regimen Ensure patient has referral to cardiology for outpatient follow-up. Monitor daily weights and I&O's. - Time Time Spent with patient: 25-34 minutes Medications reviewed and adjusted accordingly: Yes Anticipated discharge: Home Within: within 24 hours
[2019-04-11] MEDS ORDERED: (PENDING PHARMACY ID) (Trazodone Hcl [Desyrel] 300 MG) PO SCH (22:00)
[2019-04-11] MEDS ORDERED: METOPROLOL SUCCINATE 50 MG TAB.SR.24H PO SCH (22:00)
[2019-04-11] MEDS ORDERED: TRAZODONE HCL 50 MG TABLET PO SCH (22:00)
[2019-04-11] MEDS ORDERED: DULOXETINE HCL 30 MG CAPSULE.DR PO SCH (22:00)
[2019-04-11] MEDS ORDERED: (PENDING PHARMACY ID) (Tizanidine Hcl [Zanaflex] 4 MG) PO SCH (22:00)
[2019-04-11] MEDS: TIZANIDINE HCL 4 MG TABLET PO SCH (22:51)
[2019-04-12] MEDS: TIZANIDINE HCL 4 MG TABLET PO SCH ×2 (05:44→16:51)
[2019-04-12 06:58] LABS: ANION GAP 9 (5-19); BLOOD UREA NITROGEN 19 mg/dL (7-20); CALCIUM 9.3 mg/dL (8.4-10.2); CARBON DIOXIDE 25 mmol/L (22-30); CHLORIDE 104 mmol/L (98-107); GLUCOSE 277 mg/dL (75-110); POTASSIUM 4.7 mmol/L (3.6-5.0)
[2019-04-12] MEDS: INSULIN LISPRO 100 UNIT/ML 3 ML VIAL SUBCUT SCH ×2 (08:39→11:35)
[2019-04-12] MEDS: FENOFIBRATE NANOCRYSTALLIZED 145 MG TABLET PO SCH (09:35)
[2019-04-12] MEDS: DOCUSATE SODIUM 100 MG CAPSULE PO SCH (09:35)
[2019-04-12 11:48] LABS: HEMATOCRIT 36.5 % (36.0-47.0); HEMOGLOBIN 12.2 g/dL (12.0-15.5); MEAN CORPUSCULAR HEMOGLOBIN 28.3 pg (27.0-33.4); MEAN CORPUSCULAR HGB CONC 33.5 g/dL (32.0-36.0); MEAN CORPUSCULAR VOLUME 85 fl (80-97); PLATELET COUNT 161 10^3/uL (150-450); RED BLOOD COUNT 4.32 10^6/uL (3.72-5.28); RED CELL DISTRIBUTION WIDTH 14.7 % (11.5-14.0); WHITE BLOOD COUNT 5.9 10^3/uL (4.0-10.5)
[2019-04-12] MEDS ORDERED: HUM INSULIN NPH/REG INSULIN HM 100 UNIT/1 ML 3 ML SUBCUT SCH (16:00)
[2019-04-12 17:35] VITALS: BP 136/75
--- NOTE | 2019-04-13 16:38 | PDOC DISCHARGE SUMMARY ---
Impression - Admit/DC Date/PCP Admission Date/Primary Care Provider: 04/10/19 16:32 Discharge Date: 04/12/19 - Discharge Diagnosis (1) Lactic acidosis Is this a current diagnosis for this admission?: Yes (2) Diabetes Is this a current diagnosis for this admission?: Yes (3) Hypertension Is this a current diagnosis for this admission?: Yes (4) CHF (congestive heart failure) Is this a current diagnosis for this admission?: Yes - Additional Information Discharge Diet: Cardiac, Diabetic Discharge Activity: Activity As Tolerated, Balance Activity w/Rest Referrals: [facility] [Outside] (LEFT A VOICE MAIL MESSAGE WITH THE PATIENT'S INFORMATION.) Prescriptions: Syringe and Needle,Insulin,1Ml [Insulin Syringe] 1 each QHS #30 disp.syrin Insulin Glargine,Hum.rec.anlog [Lantus (Pyxis) Insulin 100 Unit/1 ml 10 ml] 10 unit SUBCUT QHS #2 vial Fenofibrate Nanocrystallized [Tricor 145 mg Tablet] 145 mg PO DAILY #30 tablet Home Medications: Furosemide [Lasix 20 mg Tablet] 20 mg PO QHS 04/10/19 Omeprazole 40 mg PO QHS 04/10/19 Tizanidine HCl [Zanaflex] 4 mg PO Q8 04/10/19 Trazodone HCl [Desyrel] 300 mg PO QHS 04/10/19 Duloxetine HCl [Cymbalta 30 mg Capsule.dr] 120 mg PO QHS 04/11/19 Glipizide [Glucotrol] 10 mg PO BIDBS 04/11/19 Metoprolol Succinate [Toprol XL 100 mg Tablet] 100 mg PO QHS 04/11/19 Tramadol HCl [Ultram 50 mg Tablet] 50 mg PO Q8HP PRN 04/11/19 Acetaminophen [Tylenol 325 mg Tablet] 650 mg PO Q4HP PRN tablet 04/12/19 Fenofibrate Nanocrystallized [Tricor 145 mg Tablet] 145 mg PO DAILY #30 tablet 04/12/19 Insulin Glargine,Hum.rec.anlog [Lantus (Pyxis) Insulin 100 Unit/1 ml 10 ml] 10 unit SUBCUT QHS #2 vial 04/12/19 Syringe and Needle,Insulin,1Ml [Insulin Syringe] 1 each QHS #30 disp.syrin 04/12/19 History of Present Illiness History of Present Illness: ELDER BRYAN is a 53 year old female who recently moved from [place], without local PCP, and past medical history significant for hypertension, CHF, cardiomyopathy, remote myocarditis, [place] with clean cardiac catheterization 3 years ago, hypertension, DM 2, obesity, and depression who presented to the emergency department today with a complaint of generalized fatigue, malaise, urinary frequency and dysuria x2 to 3 days. Evaluation in the emergency department revealed stable vital signs, unremarkable CBC, normal coags, chemistry demonstrating hyperglycemia (459), elevated lactic acid (3.8) unresponsive to 2.5 L NS (follow up 4.0), negative urinalysis and CT ABD/Pelvis that demonstrates multiple post-surgical changes but no acute findings. The patient is noted to be on Metformin 500 mg BID; and interestingly, reports that she had an admission in January and February of this year (to out of state hospital) both with elevated lactic acids that were presumably related to her metformin and no infectious process at that time. The patient admits to being frustrated that the source of her lactic acidosis was not identified but did seem to correct over the course of her admissions with gentle IV fluids until she was discharged. The Hospitalist services is consulted for admission and management of the above stated complaints and findings. Hospital Course Hospital Course: The patient was admitted to the medical floor on continuous cardiac telemetry. Further work-up to identify potential other causes for her lactic acidosis was unremarkable; laboratory evaluation, LDH, UDS, toxicology, urinalysis, and culture results were all benign. The patient disclosed that she had had multiple previous admissions to out of state hospitals for elevated lactic acidosis without sepsis and no other identified cause. Despite this, she is remained on metformin. A long discussion was had with the patient regarding permanently discontinuing metformin use. Did discuss with hematology/oncology and [employer] service the patient's positive hCG results; will services found this to be not clinically significant at this time and not red flags for malignant process. The patient was provided generous IV fluids with resolution of her lactic acidosis. Patientwas noted to be elevated to 10.9%. Despite being uninsured, the patient requested to be discharged home on Lantus. She is instructed to continue her glipizide but cannot resume her metformin. The patient's hypertension remained acceptable on her home medication regiment. The patient did disclose systolic CHF with an ejection fraction of approximately 30% approximately 3 years ago following non-STEMI. She has had no further cardiac work-up. She is strongly encouraged to establish with a local dolly operator for further evaluation and management of her CHF. At time of discharge, patient is in stable condition, maintaining oxygen saturations on room air, ambulatory, and tolerating a consistent carb diet. Her laboratory results have normalized. She is advised to establish with a local primary care provider as soon as possible. She is strongly encouraged to establish with a local dolly operator. She is instructed not to resume metformin. She is provided prescriptions for Lantus. She is encouraged to follow a consistent carb, heart healthy diet, and to drink plenty of fluids. She is advised to return to the emergency department as needed for concerning symptoms. Physical Exam Vital Signs: Temp Pulse Resp BP Pulse Ox 99.1 F 58 L 16 128/64 H 93 04/12/19 17:05 04/12/19 17:05 04/12/19 17:05 04/12/19 17:05 04/12/19 17:05 Intake & Output 04/12/19 04/13/19 04/14/19 06:59 06:59 06:59 Intake Total 1812 200 Balance 1812 200 Weight 87.8 kg 87.8 kg General appearance: PRESENT: no acute distress, cooperative, obese, well- developed, well-nourished Head exam: PRESENT: atraumatic, normocephalic Eye exam: PRESENT: conjunctiva pink, EOMI, PERRLA. ABSENT: scleral icterus Ear exam: PRESENT: normal external ear exam Mouth exam: PRESENT: moist, tongue midline Respiratory exam: PRESENT: clear to auscultation shauna, symmetrical, unlabored. ABSENT: rales, rhonchi, wheezes Cardiovascular exam: PRESENT: RRR, +S1, +S2. ABSENT: diastolic murmur, rubs, systolic murmur Pulses: PRESENT: normal dorsalis pedis pul Vascular exam: PRESENT: normal capillary refill GI/Abdominal exam: PRESENT: normal bowel sounds, soft. ABSENT: distended, guarding, mass, organolmegaly, rebound, tenderness Rectal exam: PRESENT: deferred Extremities exam: PRESENT: full ROM. ABSENT: calf tenderness, clubbing, pedal edema Musculoskeletal exam: PRESENT: ambulatory Neurological exam: PRESENT: alert, awake, oriented to person, oriented to place, oriented to time, oriented to situation, CN II-XII grossly intact. ABSENT: motor sensory deficit Psychiatric exam: PRESENT: appropriate affect, normal mood. ABSENT: homicidal ideation, suicidal ideation Skin exam: PRESENT: dry, intact, warm. ABSENT: cyanosis, rash Results Laboratory Results: WBC 5.9 10^3/uL (4.0-10.5) 04/12/19 10:59 RBC 4.32 10^6/uL (3.72-5.28) 04/12/19 10:59 Hgb 12.2 g/dL (12.0-15.5) 04/12/19 10:59 Hct 36.5 % (36.0-47.0) 04/12/19 10:59 MCV 85 fl (80-97) 04/12/19 10:59 MCH 28.3 pg (27.0-33.4) 04/12/19 10:59 MCHC 33.5 g/dL (32.0-36.0) 04/12/19 10:59 RDW 14.7 % (11.5-14.0) H 04/12/19 10:59 Plt Count 161 10^3/uL (150-450) 04/12/19 10:59 Lymph % (Auto) 48.1 % (13-45) H 04/11/19 05:16 [place] % (Auto) 5.7 % (3-13) 04/11/19 05:16 Eos % (Auto) 10.0 % (0-6) H 04/11/19 05:16 Baso % (Auto) 0.6 % (0-2) 04/11/19 05:16 Absolute Neuts (auto) 2.2 10^3/uL (1.7-8.2) 04/11/19 05:16 Absolute Lymphs (auto) 3.0 10^3/uL (0.5-4.7) 04/11/19 05:16 Absolute Monos (auto) 0.4 10^3/uL (0.1-1.4) 04/11/19 05:16 Absolute Eos (auto) 0.6 10^3/uL (0.0-0.6) 04/11/19 05:16 Absolute Basos (auto) 0.0 10^3/uL (0.0-0.2) 04/11/19 05:16 Seg Neutrophils % 35.6 % (42-78) L 04/11/19 05:16 Platelet Estimate Cancelled 04/12/19 06:24 PT 13.2 SEC (11.4-15.4) 04/10/19 16:48 INR 1.00 04/10/19 16:48 APTT 22.8 SEC (23.5-35.8) L 04/10/19 16:48 Carbonic Acid 1.39 mmol/L (1.05-1.35) H 04/10/19 17:10 HCO3/H2CO3 Ratio 19:1 04/10/19 17:10 ABG pH 7.39 (7.35-7.45) 04/10/19 17:10 ABG pCO2 46.3 mmHg (35-45) H 04/10/19 17:10 ABG pO2 80.5 mmHg (80-100) 04/10/19 17:10 ABG HCO3 27.1 mmol/L (20-24) H 04/10/19 17:10 ABG Total CO2 28.6 mmol/L (21-25) H 04/10/19 17:10 ABG O2 Saturation 95.7 % (94-98) 04/10/19 17:10 ABG Base Excess 1.7 mmol/L 04/10/19 17:10 VBG pH 7.28 (7.30-7.42) L 04/10/19 11:53 VBG pCO2 60.4 mmHg (35-63) 04/10/19 11:53 VBG HCO3 27.6 mmol/L (20-32) 04/10/19 11:53 VBG Base Excess -0.4 mmol/L 04/10/19 11:53 FiO2 ROOM AIR 04/10/19 17:10 Sodium 138.1 mmol/L (137-145) 04/12/19 06:24 Potassium 4.7 mmol/L (3.6-5.0) 04/12/19 06:24 Chloride 104 mmol/L (98-107) 04/12/19 06:24 Carbon Dioxide 25 mmol/L (22-30) 04/12/19 06:24 Anion Gap 9 (5-19) 04/12/19 06:24 BUN 19 mg/dL (7-20) 04/12/19 06:24 Creatinine 0.74 mg/dL (0.52-1.25) 04/12/19 06:24 Est GFR ( Amer) > 60 (>60) 04/12/19 06:24 Est GFR (MDRD) Non-Af > 60 (>60) 04/12/19 06:24 Glucose 277 mg/dL (75-110) H 04/12/19 06:24 POC Glucose 201 mg/dL (70-110) H 04/12/19 16:01 Hemoglobin A1c % 10.9 % (4.7-6.0) H 04/11/19 05:16 Lactic Acid 2.0 mmol/L (0.7-2.1) 04/12/19 06:24 Calcium 9.3 mg/dL (8.4-10.2) 04/12/19 06:24 Total Bilirubin 0.4 mg/dL (0.2-1.3) 04/11/19 05:16 Direct Bilirubin 0.1 mg/dL (0.0-0.4) 04/11/19 05:16 Neonat Total Bilirubin Not Reportable 04/11/19 05:16 Neonat Direct Bilirubin Not Reportable 04/11/19 05:16 Neonat Indirect Bili Not Reportable 04/11/19 05:16 AST 21 U/L (14-36) 04/11/19 05:16 ALT 18 U/L (<35) 04/11/19 05:16 Alkaline Phosphatase 66 U/L (38-126) 04/11/19 05:16 Lactate Dehydrogenase 161 U/L (120-246) 04/10/19 11:53 Creatine Kinase 20 U/L (30-135) L 04/10/19 11:53 Total Protein 5.8 g/dL (6.3-8.2) L 04/11/19 05:16 Albumin 3.3 g/dL (3.5-5.0) L 04/11/19 05:16 Triglycerides 616 mg/dL (<150) H 04/11/19 05:16 Cholesterol 238.82 mg/dL (0-200) H 04/11/19 05:16 LDL Cholesterol Direct 123 mg/dL (<100) H 04/11/19 05:16 VLDL Cholesterol, Calc UNABLE TO CALCULATE 04/11/19 05:16 HDL Cholesterol 36 mg/dL (>40) L 04/11/19 05:16 TSH 1.53 uIU/mL (0.47-4.68) 04/11/19 05:16 Serum HCG, Qual Cancelled 04/10/19 11:53 Serum HCG, Qual POSITIVE (NEGATIVE) H 04/10/19 11:53 Beta HCG, Quant 3.80 mIU/mL (0.0-6.15) 04/10/19 11:53 Total Beta HCG NEGATIVE (NEGATIVE) 04/10/19 11:53 Urine Color YELLOW 04/10/19 11:40 Urine Appearance CLEAR 04/10/19 11:40 Urine pH 5.0 (5.0-9.0) 04/10/19 11:40 Ur Specific [place] 1.025 04/10/19 11:40 Urine Protein NEGATIVE mg/dL (NEGATIVE) 04/10/19 11:40 Urine Glucose (UA) >=500 mg/dL (NEGATIVE) H 04/10/19 11:40 Urine Ketones NEGATIVE mg/dL (NEGATIVE) 04/10/19 11:40 Urine Blood NEGATIVE (NEGATIVE) 04/10/19 11:40 Urine Nitrite (Reflex) NEGATIVE (NEGATIVE) 04/10/19 11:40 Urine Bilirubin NEGATIVE (NEGATIVE) 04/10/19 11:40 Urine Urobilinogen NEGATIVE mg/dL (<2.0) 04/10/19 11:40 Leukocyte Esterase Rfl NEGATIVE (NEGATIVE) 04/10/19 11:40 Urine RBC (Auto) 1 /HPF 04/10/19 11:40 U Hyaline Cast (Auto) 1 /LPF 04/10/19 11:40 Urine WBC (Reflex) 1 /HPF 04/10/19 11:40 Squamous Epi Cells Auto 1 /HPF 04/10/19 11:40 Urine Mucus (Auto) RARE /LPF 04/10/19 11:40 Urine Ascorbic Acid NEGATIVE (NEGATIVE) 04/10/19 11:40 Salicylates < 1.0 mg/dL (2.0-20.0) L 04/10/19 11:53 Urine Opiates Screen NEGATIVE 04/10/19 12:33 Urine Methadone Screen NEGATIVE 04/10/19 12:33 Acetaminophen < 10 ug/mL (10-30) L 04/10/19 11:53 Ur Barbiturates Screen NEGATIVE 04/10/19 12:33 Ur Phencyclidine Scrn NEGATIVE 04/10/19 12:33 Ur Amphetamines Screen NEGATIVE 04/10/19 12:33 U Benzodiazepines Scrn NEGATIVE 04/10/19 12:33 Urine Cocaine Screen NEGATIVE 04/10/19 12:33 U Marijuana (THC) Screen NEGATIVE 04/10/19 12:33 Serum Alcohol < 10 mg/dL (NONE DETECTED) 04/10/19 12:33 Slides for Path Review Cancelled 04/12/19 06:24 Impressions: Abdomen/Pelvis CT 04/10/19 13:14 IMPRESSION: 1. No acute noncontrast CT findings of the abdomen or pelvis to explain abdominal pain, flank pain, or urinary frequency. No evidence of urinary tract calculus or hydronephrosis. 2. Multiple postoperative findings as above. Plan Plan of Treatment: The patient is instructed to follow-up with her primary care provider within 1 week. Establish with a local dolly operator. She is instructed not to take metformin as this is unsafe for her; she is multiple admissions for lactic acidosis with no other cause. She is advised to eat a consistent carb diet. Continue medications as prescribed. Drink plenty of water. She is advised to return to the emergency department as needed for concerning symptoms. Time Spent: Greater than 30 Minutes Stroke Is this a Stroke Patient?: No Acute Heart Failure - Is this a Heart Failure Patient?: Yes Documentation of LVEF assessment?: Planned for after discharge LVEF < 40%?: No- if no continue to question #3 3. Anticoagulant therapy for permanect/persistent/paraoxysmal Afib or Aflutter: N/A Follow-up Appointment scheduled within 7 days?: Yes
== END 2019-04-12 17:45 | disposition home or self-care (01) ==
LOC: ER 11:16 → INTOOBSV 16:32 → EH 16:32 → 4S 17:45
PROVIDERS: ADMIT Internal Medicine; ATTEND Internal Medicine
DX: E87.2 Acidosis (principal); E11.65 Type 2 diabetes mellitus with hyperglycemia; I11.0 Hypertensive heart disease with heart failure; I50.22 Chronic systolic (congestive) heart failure; R30.0 Dysuria; I42.9 Cardiomyopathy, unspecified; I25.2 Old myocardial infarction; Z79.84 Long term (current) use of oral hypoglycemic drugs; Z32.01 Encounter for pregnancy test, result positive; E66.9 Obesity, unspecified; R59.1 Generalized enlarged lymph nodes; R68.83 Chills (without fever); R10.9 Unspecified abdominal pain; R10.816 Epigastric abdominal tenderness; Z90.710 Acquired absence of both cervix and uterus; F32.9 Major depressive disorder, single episode, unspecified; R10.811 Right upper quadrant abdominal tenderness; M79.7 Fibromyalgia; M19.90 Unspecified osteoarthritis, unspecified site; I71.2 Thoracic aortic aneurysm, without rupture; I25.10 Atherosclerotic heart disease of native coronary artery without angina pectoris; Z79.899 Other long term (current) drug therapy; Z83.3 Family history of diabetes mellitus; Z82.49 Family history of ischemic heart disease and other diseases of the circulatory system; Z90.49 Acquired absence of other specified parts of digestive tract
CPT/HCPCS: 99285; 96361; 96374; 36415 ×3; 87040; 87086; 82962 ×3; 80307 ×4; 82803 ×2; 82550; 84702; 83605 ×4; 83615; 84443; 84703; 85025 ×2; 85027; 85610; 85730; 80048; 80053 ×2; 81001; 83036; 80061; 74176; 93005; 93010; 36600; G0378 ×3; J3490 ×5; J1815 ×4; J2405; J7030 ×2